=== PATIENT | female | born 1995 | race Caucasian/White ===

== ENCOUNTER 2021-09-07 13:41 | Emergency (ER) | payer OTHER ==
[~2021-09-07] VITALS: Ht 165.1 cm; Wt 104.5 kg
[2021-09-07 13:54] VITALS: BP 150/100
[2021-09-07] MEDS ORDERED: IBUPROFEN 600 MG TABLET PO ONE (14:45)
[2021-09-07] MEDS ORDERED: ACETAMINOPHEN 500 MG TABLET PO ONE (14:45)
[2021-09-07] MEDS ORDERED: IBUP-2070 PO (16:02)
== END 2021-09-07 16:14 | disposition home or self-care (01) ==
LOC: EMS 13:41
DX: R51.9 Headache, unspecified (principal); Y04.8XXA Assault by other bodily force, initial encounter; Y93.89 Activity, other specified; Y92.89 Other specified places as the place of occurrence of the external cause; Y99.8 Other external cause status
CPT/HCPCS: 99283